=== PATIENT | male | born 1975 | race Two or more races ===

== ENCOUNTER 2020-08-31 11:11 | Emergency (ER) | payer OTHER ==
[~2020-08-31] VITALS: Ht 172.7 cm; Wt 100.7 kg
--- NOTE | 2020-08-31 11:25 | NUR ---
ED Nurse Note: Patient from his PCP clinic and walked in due to stroke like symptoms last night. Per patient, he was sent by Dr Christ Dale due to possible TIA. patient states that last night while having a break from work, he experienced sudden weakness on RUE with tingling sensation which extended to his right side face x2-3 mins. Patient came in AAO x4, ambulatory with no respiratory distress. No arm or leg drifting. Denies presence of headache or blurring of vision.
--- NOTE | 2020-08-31 11:30 | NUR ---
ED Nurse Note: Patient taken to CT in stable condition.
--- NOTE | 2020-08-31 11:35 | Emergency Room Report ---
History of Present Illness General Chief Complaint: Stroke Symptoms Source: Patient Present Illness HPI Disclaimer: Please note that this report is being documented using DRAGON technology. This can lead to erroneous entry secondary to incorrect interpretation by the dictating instrument. HPI: 45-year-old male presents for evaluation of strokelike symptoms. The patient states while on a break from work last night approximately 8 PM he felt sudden flaccid paralysis of the right upper extremity for 2 to 3 minutes. This slowly resolved. He noted paresthesias as his strength returned which extended over to the right side of the face. Denied any visual changes or headache at that time. Denied numbness or paresthesias in the lower extremities. No symptoms on the left side. He has now returned to normal on strength and sensation and has no complaints at this time. He was seen by his PMD who referred him to ED for stroke evaluation. Patient has a history of hyperlipidemia but does not take medication. Denies history of arrhythmia, does not take aspirin or other medications. Non-smoker. Denies alcohol use. PMH: Hyperlipidemia nonmedicated PSH: Denied Allergies: Denied Social Hx: Denies alcohol tobacco or drug use Allergies: Coded Allergies: No Known Allergies (Unverified , 08/31/20) COVID-19 Screening Contact w/high risk pt: No Experienced COVID-19 symptoms?: No COVID-19 Testing performed ATHLETIC TRAINER: No Nursing Documentation-PMH Past Medical History: No Stated History Review of Systems All Other Systems: negative except mentioned in HPI Physical Exam Vital Signs Date Time Temp Pulse Resp B/P (MAP) Pulse Ox O2 Delivery O2 Flow Rate FiO2 08/31/20 11:16 98.1 64 20 124/72 (89) 99 Room Air General: Awake and alert, no acute distress HEENT: NC/AT. EOMI. PERRLA. Visual núñez are full. No nystagmus. Facial expressions are symmetrical. No facial droop. Cardiovascular: RRR. S1 and S2 normal. No murmur appreciated Resp: Normal work of breathing. No cough, wheezing or crackles appreciated Abdomen: Abdomen is soft, nondistended. Nontender Skin: Intact. No abrasions, laceration or rash over the exposed skin MSK: Normal tone and bulk. Moving all extremities. No obvious deformity. There is no drift in the upper or lower extremities bilaterally. Neuro: Awake and alert. Mentating appropriately. Facial expression symmetrical. No dysarthria, no ataxia on [id number] or [id number] testing. Sensation to light touch is intact over the upper and lower e xtremities. The patient has intact speech with good repetition, comprehension. Fund of knowledge is full. No aphasia, no neglect. NIH: 0 Medical Decision Making Diagnostic Impression: Primary Impression: TIA (transient ischemic attack) ER Course 45-year-old male presents for evaluation of transient paralysis right upper extremity. Concern for CVA, TIA, seizure, multiple sclerosis, other demyelinating condition, and autoimmune disease, brain mass, peripheral neuropathy among others. Labs have returned within normal limits. Patient's EKG is unremarkable. CT scan of the head does not show space-occupying lesion, acute intracranial bleed or other abnormalities. MRI of the brain is pending however the patient will require admission for further neurologic work-up given his concerning story. Discussed with Dr. Packer at [facility] where the patient is cap[facility] who has accepted him for transfer. Laboratory Tests Test 08/31/20 11:30 White Blood Count 7.2 K/UL (4.8-10.8) Red Blood Count 5.45 M/UL (4.70-6.10) Hemoglobin 16.0 G/DL (14.2-18.0) Hematocrit 46.6 % (42.0-52.0) Mean Corpuscular Volume 85 FL (80-99) Mean Corpuscular Hemoglobin 29.3 PG (27.0-31.0) Mean Corpuscular Hemoglobin Concent 34.3 G/DL (32.0-36.0) Red Cell Distribution Width 12.2 % (11.6-14.8) Platelet Count 252 K/UL (150-450) Mean Platelet Volume 7.1 FL (6.5-10.1) Neutrophils (%) (Auto) 61.0 % (45.0-75.0) Lymphocytes (%) (Auto) 29.3 % (20.0-45.0) Monocytes (%) (Auto) 5.5 % (1.0-10.0) Eosinophils (%) (Auto) 2.6 % (0.0-3.0) Basophils (%) (Auto) 1.6 % (0.0-2.0) Prothrombin Time 10.9 SEC (9.30-11.50) Prothrombin Time INR 1.0 (0.9-1.1) Activated Partial Thromboplast Time 27 SEC (23-33) Sodium Level 138 MMOL/L (136-145) Potassium Level 4.0 MMOL/L (3.5-5.1) Chloride Level 104 MMOL/L (98-107) Carbon Dioxide Level 28 MMOL/L (21-32) Anion Gap 6 mmol/L (5-15) Blood Urea Nitrogen 11 mg/dL (7-18) Creatinine 0.8 MG/DL (0.55-1.30) Estimated Glomerular Filtration Rate > 60 mL/min (>60) Glucose Level 100 MG/DL (74-106) Calcium Level 8.7 MG/DL (8.5-10.1) Total Bilirubin 1.1 MG/DL (0.2-1.0) H Direct Bilirubin 0.2 MG/DL (0.0-0.3) Aspartate Amino Transferase (AST) 23 U/L (15-37) Alanine Aminotransferase (ALT) 55 U/L (12-78) Alkaline Phosphatase 117 U/L (46-116) H Total Protein 8.0 G/DL (6.4-8.2) Albumin 4.1 G/DL (3.4-5.0) Globulin 3.9 g/dL Albumin/Globulin Ratio 1.1 (1.0-2.7) Triglycerides Level 124 MG/DL (30-150) Cholesterol Level 185 MG/DL (< 200) LDL Cholesterol 137 mg/dL (<100) H HDL Cholesterol 32 MG/DL (40-60) L Cholesterol/HDL Ratio 5.8 (3.3-4.4) H EKG Diagnostic Results Troponin ordered: Yes When was troponin ordered?: Aug 31, 2020 EKG Time: 11:29 Rate: normal Rhythm: NSR ST Segments: no acute changes Other Impression Sinus rhythm, left axis, normal intervals, no ST segment changes. QTC 408 ms. Rhythm Strip Diag. Results Rhythm Strip Time: 11:29 EP Interpretation: yes Rate: 60s Rhythm: NSR, no PVC's, no ectopy CT/MRI/US Diagnostic Results CT/MRI/US Diagnostic Results : Impression Final Report EXAM: CT Head Without Intravenous Contrast CLINICAL HISTORY: WEAK TECHNIQUE: Axial computed tomography images of the head/brain without intravenous contrast. CTDI is 53.40 mGy and DLP is 1152.40 mGy-cm. One or more of the following dose reduction techniques were used: automated exposure control, adjustment of the mA and/or kV according to patient size, use of iterative reconstruction technique. Coronal reformatted images were created and reviewed. COMPARISON: No relevant prior studies available. FINDINGS: Brain: Unremarkable. No evidence of acute intracranial hemorrhage. No significant white matter disease. No edema. No mass effect or midline shift. Ventricles: Unremarkable. No ventriculomegaly. Bones/joints: Unremarkable. No depressed skull fracture. Soft tissues: Unremarkable. Sinuses: Unremarkable as visualized. Visualized paranasal sinuses are clear. No sinus air-fluid levels. Mastoid air cells: Unremarkable as visualized. No mastoid effusion. IMPRESSION: Unremarkable noncontrast CT of the head/brain. Radiologist: Mark Rangel MD Electronically Signed: 08/31/20 12:51 Study ready at 12:40 and initial results transmitted at 12:51 Last Vital Signs Date Time Temp Pulse Resp B/P (MAP) Pulse Ox O2 Delivery O2 Flow Rate FiO2 08/31/20 11:16 98.1 64 20 124/72 (89) 99 Room Air Disposition: SHORT-TERM HOSP Condition: Stable Reese Hendrix MD Aug 31, 2020 11:35
[2020-08-31] MEDS ORDERED: Gadavist 7.5mMol/7.5ml vial IV PRN (11:45)
[2020-08-31 11:46] LABS: BASOPHILS % (AUTO) 1.6 % (0.0-2.0); EOSINOPHILS % (AUTO) 2.6 % (0.0-3.0); HEMATOCRIT 46.6 % (42.0-52.0); LYMPHOCYTES % (AUTO) 29.3 % (20.0-45.0); MEAN CORPUSCULAR VOLUME 85 FL (80-99); MONOCYTES % (AUTO) 5.5 % (1.0-10.0); PLATELET COUNT 252 K/UL (150-450); RED BLOOD COUNT 5.45 M/UL (4.70-6.10); RED CELL DISTRIBUTION WIDTH 12.2 % (11.6-14.8); WHITE BLOOD COUNT 7.2 K/UL (4.8-10.8)
--- NOTE | 2020-08-31 11:48 | NUR ---
ED Nurse Note: Pt returned from CT, not in any distress.
[2020-08-31 11:59] VITALS: BP 117/81
[2020-08-31 12:00] LABS: ANION GAP 6 mmol/L (5-15); BLOOD UREA NITROGEN 11 mg/dL (7-18); CALCIUM 8.7 MG/DL (8.5-10.1); CARBON DIOXIDE 28 MMOL/L (21-32); CHLORIDE 104 MMOL/L (98-107); CREATININE 0.8 MG/DL (0.55-1.30); SODIUM 138 MMOL/L (136-145)
[2020-08-31 12:10] LABS: ALANINE AMINOTRANSFERASE 55 U/L (12-78); ALBUMIN 4.1 G/DL (3.4-5.0); ALBUMIN/GLOBULIN RATIO 1.1 (1.0-2.7); ALKALINE PHOSPHATASE 117 U/L (46-116); ASPARTATE AMINO TRANSFERASE 23 U/L (15-37); BILIRUBIN,TOTAL 1.1 MG/DL (0.2-1.0); CHOLESTEROL 185 MG/DL (< 200); HDL CHOLESTEROL 32 MG/DL (40-60); TRIGLYCERIDES 124 MG/DL (30-150)
[2020-08-31 12:12] LABS: BILIRUBIN,DIRECT 0.2 MG/DL (0.0-0.3)
--- NOTE | 2020-08-31 12:39 | NUR ---
ED Nurse Note: Patient taken to MRI with no acute distress.
--- NOTE | 2020-08-31 12:52 | Diagnostic Imaging Report ---
EXAM: CT Head Without Intravenous Contrast CLINICAL HISTORY: WEAK TECHNIQUE: Axial computed tomography images of the head/brain without intravenous contrast. CTDI is 53.40 mGy and DLP is 1152.40 mGy-cm. One or more of the following dose reduction techniques were used: automated exposure control, adjustment of the mA and/or kV according to patient size, use of iterative reconstruction technique. Coronal reformatted images were created and reviewed. COMPARISON: No relevant prior studies available. FINDINGS: Brain: Unremarkable. No evidence of acute intracranial hemorrhage. No significant white matter disease. No edema. No mass effect or midline shift. Ventricles: Unremarkable. No ventriculomegaly. Bones/joints: Unremarkable. No depressed skull fracture. Soft tissues: Unremarkable. Sinuses: Unremarkable as visualized. Visualized paranasal sinuses are clear. No sinus air-fluid levels. Mastoid air cells: Unremarkable as visualized. No mastoid effusion. IMPRESSION: Unremarkable noncontrast CT of the head/brain.
[2020-08-31 14:00] VITALS: BP 122/89
--- NOTE | 2020-08-31 14:17 | Diagnostic Imaging Report ---
EXAM: MR Head Without Intravenous Contrast CLINICAL HISTORY: CVA TECHNIQUE: Magnetic resonance images of the head/brain without intravenous contrast in multiple planes. COMPARISON: CT head dated 08/31/20. FINDINGS: Brain: Unremarkable. Unremarkable appearance of the parenchyma. No mass effect or midline shift. No visible hemorrhage. No restricted diffusion to suggest acute ischemia or acute infarct. Ventricles: Unremarkable. No ventriculomegaly. Bones/joints: Unremarkable. Sinuses: Unremarkable as visualized. No acute sinusitis. Mastoid air cells: Unremarkable as visualized. No mastoid effusion. Orbits: Unremarkable as visualized. IMPRESSION: Normal head/brain MRI.
--- NOTE | 2020-08-31 15:19 | NUR ---
ED Nurse Note: Report given to Martin ACOSTA of [facility].
[2020-08-31 15:22] VITALS: BP 131/80
--- NOTE | 2020-08-31 15:22 | NUR ---
ED Nurse Note: Patient transferred to [facility] with his belongings. Pt was stable for transfer.
--- NOTE | 2020-09-01 16:28 | Cardiology Report ---
APPROVED REPORT EKG Measurement Heart [id number] <Conclusion> Normal sinus rhythm Normal ECG
== END 2020-08-31 15:22 | disposition short-term general hospital (02) ==
LOC: EMR 11:25
DX: G45.9 Transient cerebral ischemic attack, unspecified (principal)
CPT/HCPCS: 36415; 70450; 70551; 80053; 80061; 82248; 85025; 85610; 85730; 93005; Z7502; 99284